=== PATIENT | male | born 1935 | race Caucasian/White ===

== ENCOUNTER 2017-01-09 11:31 | Outpatient (CLI) | payer MEDICARE, BC ==
[2017-01-09] VITALS (12 sets, daily range): BP systolic 99–134; BP diastolic 57–79; PULSE 56–77; TEMP 96.8–97.5
[~2017-01-09] VITALS: Ht 167.7 cm; Wt 76.8 kg
[~2017-01-09 11:31] MED LIST: ASPIRIN 32325 MG/TAB PO; ASPIRIN E.C. 8181 MG PO; BYSTOLIC2.5 MG PO; CRESTOR5 MG PO; EXCEDRIN1 TAB PO; FLEXERIL 1010 MG/TAB PO; IBUPROFEN200 M2 PO; LIVALO1 MG PO; MOTRIN 200200 MG/TAB PO; PLAVIX 75MG TAB75 MG PO; TOPROL XL50 MG PO; XALATAN EYE DROPS OU
[2017-01-09 12:19] LABS: HEMATOCRIT 43.5 % (42.0-52.0); HEMOGLOBIN 16.1 g/dl (13.5-18.0); MEAN CELL VOLUME 85 fl (80.0-100.0); MEAN CORPUSCULAR HEMOGLOBIN 31 pg (27.0-31.0); MEAN CORPUSCULAR HGB CONC 37 g/dl (33.0-37.0); MEAN PLATELET VOLUME 10.6 fl (7.4-10.4); PLATELET COUNT 165 K/mm3 (130-400); RED BLOOD COUNT 5.13 M/mm3 (4.20-5.60); REDCELL DISTRIBUTION WIDTH-CV 13.4 % (11.5-14.5)
[2017-01-09 12:28] LABS: PROTHROMBIN TIME 11.2 SECONDS (9.7-12.8)
[2017-01-09 12:35] LABS: CALCIUM 9.3 mg/dL (8.4-10.2); CREATININE, serum 1.14 mg/dL (0.66-1.25); POTASSIUM 4.2 mmol/L (3.4-5.0)
== END 2017-01-09 14:40 | disposition home or self-care (01) ==
LOC: COL.RAD 11:31
PROVIDERS: Internal Medicine Interventional Cardiology
DX: I35.2 Nonrheumatic aortic (valve) stenosis with insufficiency (principal); I25.10 Atherosclerotic heart disease of native coronary artery without angina pectoris
CPT/HCPCS: J2250; J3010

== ENCOUNTER 2023-04-10 12:17 | Outpatient (RCR) | payer MEDICARE, BC ==
[~2023-04-10 12:17] MED LIST changes: +ASPI325T6 PO; +BRILINTA90 MG PO; +COZAAR 50MG50 MG/TAB PO; +EPA FISH OIL1 SGL PO; +NITROSTAT0.4 MG/TAB SL; +NORVASC2.5 MG PO
== END 2023-04-12 | disposition home or self-care (01) ==
LOC: COL.CR
DX: Z48.812 Encounter for surgical aftercare following surgery on the circulatory system (principal); Z95.5 Presence of coronary angioplasty implant and graft

== ENCOUNTER → 2023-05-13 | Outpatient (RCR) | payer MEDICARE, BC | END | disposition home or self-care (01) | LOC: COL.CR | DX: Z48.812 Encounter for surgical aftercare following surgery on the circulatory system (principal); Z95.5 Presence of coronary angioplasty implant and graft ==

== ENCOUNTER 2023-06-10 15:40 | Outpatient (RCR) | payer MEDICARE, BC | END 2023-06-11 | disposition home or self-care (01) | LOC: COL.CR | DX: Z48.812 Encounter for surgical aftercare following surgery on the circulatory system (principal); Z95.5 Presence of coronary angioplasty implant and graft ==

== ENCOUNTER 2023-10-06 10:52 | Outpatient (RCR) | payer MEDICARE, BC | END 2023-10-11 | LOC: WSPT | DX: M48.061 Spinal stenosis, lumbar region without neurogenic claudication (principal) ==